=== PATIENT | male | born 1975 | race Two or more races ===

== ENCOUNTER 2022-09-23 12:19 | Emergency (ER) | payer OTHER ==
[~2022-09-23] VITALS: Ht 182.9 cm; Wt 108.6 kg
[2022-09-23 12:31] VITALS: BP 134/85
[2022-09-23] MEDS ORDERED: KETOROLAC TROMETH 60MG/2ML VIAL IM ONE (13:15)
[2022-09-23] MEDS ORDERED: METH750T22 PO (14:12)
[2022-09-23] MEDS ORDERED: IBUP800T27 PO (14:12)
== END 2022-09-23 14:20 | disposition home or self-care (01) ==
LOC: ER 12:19
DX: S30.22XA Contusion of scrotum and testes, initial encounter (principal); Z88.6 Allergy status to analgesic agent; W01.0XXA Fall on same level from slipping, tripping and stumbling without subsequent striking against object, initial encounter; Y93.89 Activity, other specified; Y92.89 Other specified places as the place of occurrence of the external cause; Y99.8 Other external cause status
CPT/HCPCS: 72100; 72220; 76870; 96372; 99285; J1885